=== PATIENT | male | born 1985 | race Two or more races ===

== ENCOUNTER 2024-05-22 09:21 | Emergency (ER) | payer MEDICAID ==
[~2024-05-22] VITALS: Ht 177.8 cm; Wt 115.0 kg
[2024-05-22] MEDS: diphenhydrAMINE 50 mg/ml inj IV ONE (10:42)
[2024-05-22] MEDS: methylPREDNISolone sod succ 125mg/2ml vial IV ONE (11:12)
[2024-05-22] MEDS ORDERED: METH4TAB81 PO (11:55)
[2024-05-22 12:01] VITALS: BP 107/79; PULSE 86; RESP 16; TEMP 97.8; O2SAT 94
== END 2024-05-22 12:03 | disposition home or self-care (01) ==
LOC: ER 09:22
DX: L50.0 Allergic urticaria (principal); H57.11 Ocular pain, right eye; H57.12 Ocular pain, left eye; Z91.013 Allergy to seafood; Z79.899 Other long term (current) drug therapy
CPT/HCPCS: 96374; 96375; 99284; J1200; J2919